=== PATIENT | female | born 1965 | race Two or more races ===

== ENCOUNTER 2019-08-26 10:51 | Day surgery (SDC) | payer OTHER ==
[2019-08-24 15:12] VITALS: BP 155/93
[~2019-08-26] VITALS: Ht 157.5 cm; Wt 76.2 kg
[~2019-08-26 10:51] MED LIST: LACTATED RINGERS 1,000 ML IV SCH; vitamin d
[2019-08-26 11:26] VITALS: BP 148/99
[2019-08-26] MEDS ORDERED: LACTATED RINGERS 1,000 ML IV SCH (11:28)
[2019-08-26] MEDS ORDERED: CHLORHEXIDINE 15 ML UDC MM ONE (11:30)
[2019-08-26] MEDS ORDERED: MIDAZOLAM 1 MG/ML, 2ML ONE (11:48)
[2019-08-26] MEDS ORDERED: FENTANYL PF 250 MCG/5ML ONE (11:49)
[2019-08-26] MEDS ORDERED: MEPERIDINE/PF 25MG/0.5ML IVPush PRN (12:00)
[2019-08-26] MEDS ORDERED: hydrALAzine 20 MG/ML, 1ML IV PRN (12:00)
[2019-08-26] MEDS ORDERED: HYDROmorphone 1 MG/ML, 1ML INJ IVPush PRN (12:00)
[2019-08-26] MEDS ORDERED: OXYcodone 5 MG/5 ML ORAL.SOL UDC PO PRN ×2 (12:00→14:00)
[2019-08-26] MEDS ORDERED: HALOPERIDOL 5 MG/ML IV PRN (12:00)
[2019-08-26] MEDS ORDERED: LABETALOL 5MG/ML, 20ML IV PRN (12:00)
[2019-08-26] MEDS ORDERED: PROMETHAZINE 25 MG/ML, 1ML IVPush PRN (12:00)
[2019-08-26] MEDS ORDERED: BUPIVACAINE/PF-EPI 0.5% 1:200K ONE (12:10)
[2019-08-26] MEDS ORDERED: CEFAZOLIN 1,000 MG ONE (13:57)
[2019-08-26] MEDS ORDERED: ROCURONIUM 10MG/ML,5ML ONE (13:57)
[2019-08-26] MEDS ORDERED: DEXAMETHASONE 4 MG/ML, 1ML ONE (13:57)
[2019-08-26] MEDS ORDERED: ONDANSETRON 2MG/ML, 2ML ONE (13:57)
[2019-08-26] MEDS ORDERED: GLYCOPYRROLATE 0.2MG/1ML, 5ML ONE (13:57)
[2019-08-26] MEDS ORDERED: PROPOFOL 10 MG/ML, 20ML ONE (13:57)
[2019-08-26] MEDS ORDERED: SUCCINYLCHOLINE 20 MG/ML, 10ML ONE (13:57)
[2019-08-26] MEDS ORDERED: NEOSTIGMINE 1 MG/ML, 10ML ONE (13:57)
[2019-08-26] MEDS ORDERED: HYDROmorphone 2 MG/ML, 1ML IVPush PRN (14:00)
[2019-08-26] MEDS ORDERED: ONDANSETRON 2MG/ML, 2ML IVPush PRN (14:00)
[2019-08-26] MEDS ORDERED: FENTANYL PF 100 MCG/2ML ONE (14:27)
[2019-08-26] MEDS ORDERED: OXYcodone 5 MG/5 ML ORAL.SOL UDC ONE (14:27)
[2019-08-26] MEDS: FENTANYL PF 100 MCG/2ML IV PRN ×2 (14:36→14:41)
[2019-08-26] MEDS ORDERED: IBUPROFEN 600 MG TABLET PO SCH (16:00)
== END 2019-08-26 17:00 | disposition home or self-care (01) ==
LOC: OUT 10:51
PROVIDERS: ATTEND Surgery
DX: K43.2 Incisional hernia without obstruction or gangrene (principal); Z11.59 Encounter for screening for other viral diseases
CPT/HCPCS: 49654; C1781; J0330; J0690; J1100; J2250; J2405; J2704; J2710; J3010; J7120; S2900; U0001